=== PATIENT | male | born 1970 ===

== ENCOUNTER 2021-04-15 09:55 | Day surgery (SDC) | payer BC ==
[~2021-04-15 09:55] MED LIST: Metoclopramide 10 MG/2 ML SDV IV PRN; Sodium Chloride 0.9% 1,000 ML IV SCH
[2021-04-15] MEDS ORDERED: Propofol 200 MG/20 ML SDV ONE (11:10)
--- NOTE | 2021-04-15 12:20 | OR ---
DATE OF OPERATION: 04/15/2021 SURGEON: Jon Dykes MD PREOPERATIVE DIAGNOSIS: Screening colonoscopy. POSTOPERATIVE DIAGNOSIS: Screening colonoscopy. PROCEDURE: Colonoscopy. ANESTHESIA: MAC. ESTIMATED BLOOD LOSS: None. COMPLICATIONS: None. INDICATION FOR THE PROCEDURE: The patient is a 50-year-old male here today for his first colonoscopy. Denies any family history of colon cancer. Denies any change in bowel habits. DESCRIPTION OF PROCEDURE: Informed consent was obtained from the patient. The patient was taken to the operating room, placed on the table in the left lateral decubitus position. Monitored anesthesia care was administered. Digital rectal exam was performed and was normal. Colonoscope was then advanced through the anus, directed towards the cecum. Cecum was reached and identified by appendiceal orifice and ileocecal valve. Colonoscope was then slowly withdrawn. No polyps. No masses. No areas of ischemia or inflammation identified. Colonoscope was withdrawn. Rectum was also otherwise unremarkable. Colonoscope then fully withdrawn. FINDINGS: Normal colonoscopy. RECOMMENDATIONS: Would recommend repeat screening colonoscopy in 10 years. BRIAN/WELLINGTON /[id number]
== END 2021-04-15 12:00 | disposition home or self-care (01) ==
LOC: LB.SDS 09:55
PROVIDERS: ATTEND Surgery
DX: Z12.11 Encounter for screening for malignant neoplasm of colon (principal); E78.5 Hyperlipidemia, unspecified; Z20.822 Contact with and (suspected) exposure to COVID-19; Z79.899 Other long term (current) drug therapy
CPT/HCPCS: 45378; J2704; J7030